=== PATIENT | female | born 1945 ===

== ENCOUNTER → 2025-06-18 | Outpatient (CLI) | payer MEDICARE ==
[2025-06-18 14:24] VITALS: BP 132/85; PULSE 70; RESP 16; TEMP 97.8
--- NOTE | 2025-06-18 15:03 | P.SLEEP ---
History of Present Illness DATE: 06/18/2025 CONSULTATION/NEW PATIENT EVALUATION HISTORY OF PRESENT ILLNESS/SLEEP-WAKE EVALUATION: 79-year-old lady had been e valuated in the sleep center for possible obstructive sleep apnea hypopnea syndrome. SLEEP SCHEDULE: Usually sleep schedule from 1011 PM to 9 AM. FALLING ASLEEP: Usually no significant problems with falling asleep. DURING SLEEP: Patient snores and wakes up from sleep several times with occasional episodes of nocturia. No history of hypnogogical hallucinations, sleep paralysis, or cataplexy. DURING THE DAY/WAKE STATE: In the morning patient wake up tired, has difficulties to pay attention, falling asleep during the day. Positive history of problems with memory, concentration, irritability.. [place] sleepiness scale is increased to 12. Patient may fell asleep during the day, no scheduled naps. PAST MEDICAL HISTORY: Hypothyroidism, Parkinson disease, restless leg symptoms. PAST SURGICAL HISTORY: Bilateral arthroscopic knee surgery, bilateral shoulder surgery, tonsillectomy. MEDICATIONS: Please see below. SOCIAL HISTORY: Please see below. FAMILY HISTORY: Please see below. REVIEW OF SYSTEMS: Snoring, awakenings from sleep, sleepiness during the day. No fevers. No double vision. No recent chest pain. No shortness of breath. No abdominal pain. No bleeding episodes. No blood in urine. No seizure episodes. PHYSICAL EXAMINATION: GENERAL: A pleasant patient without any distress. VITAL SIGNS: See below, weight 208 pounds, BMI 38.0. HEENT: PERRLA, EOMI. Evaluation of oropharynx showed tongue protrudes midline, low position of soft palate Mallampati 4, retrognathia 1 to 2 mm. NECK: Supple. No JVD. Thyroid is not palpable. 16.5 inches in circumference. LUNGS: Clear to percussion and to auscultation. Good air exchange. No wheezing or rhonchi. HEART: S1, S2 regular. No murmurs, gallops or rubs. ABDOMEN: Soft and nontender. Bowel sounds are present. No organomegaly appreciated. EXTREMITIES: No clubbing or cyanosis. [employer] PA[employer]: Awake, alert, and oriented x3. Cranial nerves 2 to 7 intact. There is no fasciculation or atrophy noted. No focal deficits observed. ASSESSMENT: 1. Snoring, awakenings from sleep, extremely low position of soft palate Mallampati 4, wide neck 16.5 inches in circumference, sleepiness with [place] Sleepiness Scale increased to 12. Obstructive sleep apnea hypopnea syndrome. 2. Obesity, BMI 38.0. 3. History of Parkinson's disease. 4. Hypothyroidism. 5 history of restless leg symptoms. 6 . Status post tonsillectomy. 7. Status post bilateral arthroscopic knee surgery. 8. Status post bilateral shoulder surgery. PLAN: 1. Polysomnography for evaluation of patient's breathing during sleep. 2. Following plan after reading sleep study. 3. Preferable position during sleep on the side. 4. No driving if patient feels any sleepiness. Patient is aware of civil and criminal liability for unsafe driving. 5. Sleep hygiene with regular sleep time for at least 7.5-8 hours. 6. Watching and losing weight. Thank you very much for referring this patient for consultation. Sincerely, José Miguel Marlow MD, PhD, FAASM. Diplomat of [place] [employer], Sleep Medicine Board by [place] [employer] [employer] [facility] [place] cc: Darwin Heck MD Past Medical History Past Medical History: Cancer, Thyroid Disorder Additional Past Medical History / Comment(s): Breast (unknown side) History of Any Multi-Drug Resistant Organisms: None Reported, MRSA Date of last positivie culture/infection: 2021 MDRO Source:: both shoulders Past Surgical History: Orthopedic Surgery, Tonsillectomy Additional Past Surgical History / Comment(s): 2 shoulders & knees Past Anesthesia/Blood Transfusion Reactions: No Reported Reaction Past Psychological History: No Psychological Hx Reported Smoking Status: Never smoker Past Alcohol Use History: Rare Past Drug Use History: Marijuana - Past Family History Father Family Medical History: Cancer, Hyperlipidemia Mother Family Medical History: Cancer Medications and Allergies Home Medications Medication Instructions Recorded Confirmed Type Carbidopa-Levodopa ER 50-200Mg See Rx Instructions .ROUTE .COMPLEX 06/18/25 06/18/25 History [Sinemet CR 50-200 mg] Gabapentin 300 mg PO DAILY 06/18/25 06/18/25 History Levothyroxine Sodium 112 mcg PO DAILY 06/18/25 06/18/25 History Meloxicam [Mobic] 15 mg PO DAILY 06/18/25 06/18/25 History Physical Exam Vitals: Vital Signs Temp Pulse Resp BP Pulse Ox 06/18/25 14:22 97.8 F 70 16 132/85 100 Intake and Output 06/17/25 06/18/25 06/18/25 22:59 06:59 14:59 Other: Weight 94.347 kg Sleep Note - Sleep Data ESS Total: 12 - Sleep Note Sleep Note: Temperature: 97.8 F Pulse Rate: 70 Respiratory Rate: 16 Blood Pressure: 132/85 SpO2: 100 Height: 5 ft 2 in Weight: 94.347 kg BMI: Neck Circumference: 16.5
== END ==
LOC: 3 N SLEEP 14:02
PROVIDERS: ATTEND Internal Medicine
DX: G47.33 Obstructive sleep apnea (adult) (pediatric) (principal); E66.9 Obesity, unspecified; E03.9 Hypothyroidism, unspecified; Z90.89 Acquired absence of other organs; Z96.653 Presence of artificial knee joint, bilateral; Z98.890 Other specified postprocedural states; Z86.69 Personal history of other diseases of the nervous system and sense organs; Z68.38 Body mass index [BMI] 38.0-38.9, adult
CPT/HCPCS: 99202